=== PATIENT | male | born 1960 | race Native Hawaiian/Other Pacific Islander ===

== ENCOUNTER 2020-09-27 04:28 | Emergency (ER) | payer OTHER, MEDICAID ==
[2020-09-27] MEDS ORDERED: Zemuron 100 MG/10 ML IJ ONE (04:29)
[2020-09-27] MEDS ORDERED: Amidate 20 MG/10 ML IV ONE (04:29)
[2020-09-27] MEDS ORDERED: SUBLIMAZE 100 MCG/2 ML IV ONE ×2 (04:32→06:27)
[2020-09-27] MEDS ORDERED: Sodium Chloride 0.9% 1000 ML 1,000 ML IV STA (04:32)
--- NOTE | 2020-09-27 04:44 | ERPHSYRPT ---
- History of Present Illness Source: EMS Exam Limitations: clinical condition Timing/Duration: today Severity: severe - History of Present Illness Time Seen by Provider: 09/27/20 04:31 Physician History: Per EMS, approximately 2 AM patient started becoming less responsive in the [facility]. Patient does have a's seizure and psych history. He is on several seizure medications and psych medications. Also history of insulin-dependent diabetes. No other history provided by [facility]. Only a medication list. When patient arrived to the emergency department he was actively vomiting and nonresponsive. He had intermittent tonic clonic jerking's. Overall did appear that he was in status epilepticus. He had received 5 mg of IV Versed just prior to arrival. At this point time given his clinical condition, inability to protect his airway we made the decision to intubate the patient. Patient was given etomidate and rocuronium. Intubation occurred without difficulty. No other obvious further history based on EMS angio report. However, no signs or symptoms of Covid on the [facility] floor. (NEIDA LÓPEZ) Allergies/Adverse Reactions: UNOBTAINABLE Allergy (Unverified 09/27/20 05:40) Home Medications: Aspirin 81 mg PO DAILY 09/27/20 [History] Atorvastatin Calcium [Lipitor 20MG Tablet] 20 mg PO HS 09/27/20 [History] Cyanocobalamin (Vitamin B-12) [Cyanocobalamin Injection] 1,000 mcg IJ UD 09/27/20 [History] Furosemide 40 mg [Lasix 40 MG] 40 mg PO DAILY 09/27/20 [History] Insulin Regular, Human [Novolin R] 8 unit IJ ACHS 09/27/20 [History] Lactulose 45 ml PO DAILY 09/27/20 [History] Levetiracetam [Keppra] 1,000 mg PO Q12H 09/27/20 [History] Metformin HCl 500 mg PO BID 09/27/20 [History] Metoprolol Tartrate 12.5 mg PO BID 09/27/20 [History] NPH, Human Insulin Isophane [Novolin N] 15 unit SQ QAM 09/27/20 [History] NPH, Human Insulin Isophane [Novolin N] 30 unit SQ QPM 09/27/20 [History] Potassium Chloride [Klor-Con 10] 10 meq PO DAILY 09/27/20 [History] Tamsulosin HCl 0.4 mg [Flomax 0.4 MG] 0.4 mg PO DAILY 09/27/20 [History] Ziprasidone 20 mg [Geodon 20 MG Capsule] 20 mg PO BID 09/27/20 [History] Ziprasidone HCl [Geodon] 80 mg PO BID 09/27/20 [History] lisinopriL [Lisinopril] 20 mg PO DAILY 09/27/20 [History] - Review of Systems All Other Systems: Unable due to condition (See HPI for known review of systems. Patient is in status epilepticus. Unable to obtain further history.) - Nursing Vital Signs Nursing Vital Signs: Initial Vital Signs Temperature 98.2 F 09/27/20 04:35 Pulse Rate 119 H 09/27/20 04:35 Respiratory Rate 12 09/27/20 04:35 Blood Pressure 198/121 09/27/20 04:35 O2 Sat by Pulse Oximetry 94 L 09/27/20 04:35 Pain Scale Pain Intensity 0 - Physical Exam Comments: 09/27/20 04:42 Physical Exam Vitals signsand nursing notereviewed. Constitutional: Appearance: He is well-developed. Unresponsive, actively vomiting, and status epilepticus. HENT: Head: Normocephalicand 0.5 similar laceration over the right eyebrow. Eyes: Conjunctiva/sclera: Conjunctivae normal. Neck: Musculoskeletal: deformities Trachea: No tracheal deviation. Cardiovascular: Rate and Rhythm: tachycardia Pulmonary: Effort: Acute respiratory distress Abdominal: Palpations: Abdomen is soft. Actively vomiting Musculoskeletal: General: No deformity. Skin: General: Skin is warmand dry. Neurological: Mental Status: Status epilepticus . (NEIDA LÓPEZ) Procedures - Central Line Timeout: Performed Central Line Lumen: triple Lumen Size: 7 [place] Central Line Procedure: chlorahexadine prep, sterile drapes applied, sterile dressing applied, Aseptic Technique, Seldinger Technique Central Line Postion: femoral (R) Anesthesia: patient unconscious Ultrasound Guided Placement: Yes Complications: none Central Line Post Position: sutured, good blood return - Intubation Intubation Indications: airway protection Intubation Method: glidescope Tube Size (cm): 7.5 Medications: Etomidate, Rocuronium C-Spine: immobilized Endotracheal Tube Confirmation: bilateral breath sounds, positive end tidal CO2 Intubation Complications: no complications Performed By: ED Physician Post Intubation Xray: Yes - Central Line Progress: Good blood flow and flushes well. (NEIDA LÓPEZ) - Intubation Progress/X-ray Impression: 09/27/20 04:[address] (NEIDA LÓPEZ) - Course Nursing assessment & vital signs reviewed: Yes EKG Interpreted by Me: Sinus Tach Ordered Tests: Active Orders 24 hr Category Date Time Status Catheter-Broadway Lewis STAT Care 09/27/20 04:32 Active EKG-ER Only STAT Care 09/27/20 04:32 Active IV Insertion STAT Care 09/27/20 04:32 Active CHEST 1 VIEW (PORTABLE) Stat Exams 09/27/20 05:05 Taken HEAD WITHOUT CONTRAST [CT] Stat Exams 09/27/20 04:31 Taken ABG [ARTERIAL BLOOD GASES] Stat Lab 09/27/20 04:57 Completed AMYLASE Stat Lab 09/27/20 05:50 Completed CBC W DIFF Stat Lab 09/27/20 05:50 Completed CMP Stat Lab 09/27/20 05:50 Completed CULTURE,URINE Stat Lab 09/27/20 04:33 Ordered LIPASE Stat Lab 09/27/20 05:50 Completed Lactic Acid Stat Lab 09/27/20 04:57 Completed Lactic Acid Stat Lab 09/27/20 07:07 Received NT PRO BNP Stat Lab 09/27/20 05:50 Completed PROTIME WITH INR Stat Lab 09/27/20 05:50 Completed TROPONIN Q3H Lab 09/27/20 05:50 Completed TROPONIN Q3H Lab 09/27/20 07:45 Ordered TROPONIN Q3H Lab 09/27/20 10:45 Ordered TROPONIN Q3H Lab 09/27/20 13:45 Ordered TROPONIN Q3H Lab 09/27/20 16:45 Ordered UA W/RFX UR CULTURE Stat Lab 09/27/20 04:32 Completed Urine Triage Profile Stat Lab 09/27/20 04:32 Completed Intubation [Ventilator Management] STAT RT 09/27/20 04:19 Active Standby STAT RT 09/27/20 06:00 Active Medication Summary Generic Name Dose Route Start Last Admin Trade Name Freq PRN Reason Stop Dose Admin Propofol 100 mls @ 0 mls/hr 09/27/20 05:46 Propofol 1000 Mg/100 Ml Bottle IV 10/27/20 10:00 .Q0M PRN AGITATION Protocol 5 MCG/KG/MIN Diltiazem HCl 100 mls @ 5 mls/hr 09/27/20 05:49 09/27/20 05:53 Cardizem Drip 100 Mg/100 Ml D5w IV 10/27/20 05:48 5 mg/hr .Q20H PRN 5 mls/hr HEART RATE/ A-FIB Administration Protocol 5 MG/HR Propofol 100 mls @ 2.674 mls/hr 09/27/20 06:40 09/27/20 05:18 Propofol 1000 Mg/100 Ml Bottle IV 10/27/20 06:39 5 mcg/kg/min .Q24H PRN 2.674 mls/hr SEIZURES Administration Protocol 5 MCG/KG/MIN Levetiracetam 1,000 mg/ 110 mls @ 220 mls/hr 09/27/20 07:36 Dextrose IV 09/27/20 08:05 STAT ONE Discontinued Medications Generic Name Dose Route Start Last Admin Trade Name Freq PRN Reason Stop Dose Admin Fentanyl Citrate 100 mcg 09/27/20 04:32 09/27/20 04:58 Sublimaze 100 Mcg/2 Ml IV 09/27/20 04:33 100 mcg STAT ONE Administration Fentanyl Citrate Confirm 09/27/20 04:55 Sublimaze 100 Mcg/2 Ml Administered 09/27/20 04:56 Dose 100 mcg .ROUTE .STK-MED ONE Fentanyl Citrate Confirm 09/27/20 06:24 Sublimaze 100 Mcg/2 Ml Administered 09/27/20 06:25 Dose 100 mcg .ROUTE .STK-MED ONE Fentanyl Citrate 100 mcg 09/27/20 06:27 09/27/20 06:28 Sublimaze 100 Mcg/2 Ml IV 09/27/20 06:28 100 mcg STAT ONE Administration Sodium Chloride 1,000 mls @ 999 mls/hr 09/27/20 04:32 09/27/20 06:57 Sodium Chloride 0.9% 1000 Ml IV 09/27/20 05:32 Infused .Q1H1M STA Infusion Propofol 100 mls @ 0 mls/hr 09/27/20 05:04 Propofol 1000 Mg/100 Ml Bottle IV 10/27/20 05:03 .Q0M PRN AGITATION Protocol 5 MCG/KG/MIN Sodium Chloride Confirm 09/27/20 05:05 Sodium Chloride 0.9% 1000 Ml Administered 09/27/20 05:06 Dose 1,000 mls @ ud .ROUTE .STK-MED ONE Insulin Human Regular 4 unit 09/27/20 07:35 09/27/20 07:46 Humulin R IV 09/27/20 07:36 4 unit STAT ONE Administration Insulin Human Regular Confirm 09/27/20 07:42 Humulin R Administered 09/27/20 07:43 Dose 4 unit .ROUTE .STK-MED ONE Labetalol HCl 20 mg 09/27/20 05:42 09/27/20 06:00 Trandate 100 Mg/20 Ml Mdv For Drip IV 09/27/20 05:43 20 mg ONCE STA Administration Labetalol HCl Confirm 09/27/20 05:45 Trandate 100 Mg/20 Ml Mdv For Drip Administered 09/27/20 05:46 Dose 100 mg IV .[facility] ONE Lab/Rad Data: Laboratory Result Diagrams 09/27/20 05:50 09/27/20 05:50 Laboratory Results 09/27/20 09/27/20 09/27/20 Range/Units 05:50 05:50 05:50 WBC (4.0-10.5) K/mm3 RBC (4.1-5.6) M/mm3 Hgb (12.5-18.0) gm/dl Hct (42-50) % MCV (78-100) fl MCH (26-32) pg MCHC (32-36) g/dl RDW (11.5-14.0) % Plt Count (150-450) K/mm3 MPV (7.5-11.0) fl Gran % (36.0-66.0) % Eos # (Auto) (0-0.5) Absolute Lymphs (auto) (1.0-4.6) Absolute Monos (auto) (0.0-1.3) Lymphocytes % (24.0-44.0) % Monocytes % (0.0-12.0) % Eosinophils % (0.00-5.0) % Basophils % (0.0-0.4) % Absolute Granulocytes (1.4-6.9) Basophils # (0-0.4) PT 12.3 (8.83-12.87) SECONDS INR 1.09 (0.8-3.0) Puncture Site pCO2 (35-45) mmHg pO2 (75-100) mmHg Base Excess (-2.0-2.0) O2 Saturation (94-100) g/dF ABG pH (7.35-7.45) ABG HCO3 (22-28) ABG O2 Sat (Measured) (95-100) % Michael Test A-a Gradient a/A Ratio Hemoglobin Carboxyhemoglobin (0.0-6.9) % THgb Methemoglobin (1.4-1.5) % Potassium 3.8 (3.5-5.1) Temperature C POC O2 Flow Rate % Vent Mode Vent Rate /MIN Tidal Volume cc PEEP cmH2O Sodium 140 (137-145) mmol/L Chloride 99 (98-107) mmol/L Carbon Dioxide 28 (22-30) mmol/L Anion Gap 16.4 H (5-15) MEQ/L BUN 18 (9-20) mg/dL Creatinine 0.66 (0.66-1.25) mg/dL Estimated GFR > 60.0 ML/MIN Glucose 306 H (74-106) mg/dL Lactic Acid (0.4-2.0) Calcium 9.4 (8.4-10.2) mg/dL Total Bilirubin 0.90 (0.2-1.3) mg/dL AST 31 (17-59) U/L ALT 22 (0-50) U/L Alkaline Phosphatase 70 (38-126) U/L Troponin I < 0.012 (0.000-0.034) ng/mL NT-Pro-B Natriuret Pep 67.7 (0-900) pg/mL Serum Total Protein 9.4 H (6.3-8.2) g/dL Albumin 4.8 (3.5-5.0) g/dL Amylase 281 H (30-110) U/L Lipase 55 (23-300) U/L Urine Color (YELLOW) Urine Appearance (CLEAR) Urine pH (5-6) Ur Specific [place] (1.005-1.025) Urine Protein (Negative) Urine Ketones (NEGATIVE) Urine Blood (0-5) Aron/ul Urine Nitrite (NEGATIVE) Urine Bilirubin (NEGATIVE) Urine Urobilinogen (0-1) mg/dL Ur Leukocyte Esterase (NEGATIVE) Urine WBC (Auto) (0-5) /HPF Urine RBC (Auto) (0-2) /HPF U Hyaline Cast (Auto) (0-2) /LPF U Epithel Cells (Auto) (FEW) /HPF Urine Bacteria (Auto) (NEGATIVE) /HPF Urine Mucus (Auto) (NEGATIVE) /HPF Urine Culture Reflexed (NO) Urine Glucose (NEGATIVE) mg/dL Urine Opiates Level (NEGATIVE) Ur Methadone (NEGATIVE) Urine Barbiturates (NEGATIVE) Ur Phencyclidine (PCP) (NEGATIVE) Urine Amphetamine (NEGATIVE) U Benzodiazepine Level (NEGATIVE) Urine Cocaine (NEGATIVE) Urine Marijuana (THC) (NEGATIVE) 09/27/20 09/27/20 09/27/20 Range/Units 05:50 04:57 04:57 WBC 11.9 H (4.0-10.5) K/mm3 RBC 4.81 (4.1-5.6) M/mm3 Hgb 13.9 (12.5-18.0) gm/dl Hct 40.9 L (42-50) % MCV 85.0 (78-100) fl MCH 28.9 (26-32) pg MCHC 34.0 (32-36) g/dl RDW 12.4 (11.5-14.0) % Plt Count 228 (150-450) K/mm3 MPV 9.0 (7.5-11.0) fl Gran % 79.6 H (36.0-66.0) % Eos # (Auto) 0 (0-0.5) Absolute Lymphs (auto) 1.51 (1.0-4.6) Absolute Monos (auto) 0.88 (0.0-1.3) Lymphocytes % 12.7 L (24.0-44.0) % Monocytes % 7.4 (0.0-12.0) % Eosinophils % 0.0 (0.00-5.0) % Basophils % 0.3 (0.0-0.4) % Absolute Granulocytes 9.43 H (1.4-6.9) Basophils # 0.03 (0-0.4) PT (8.83-12.87) SECONDS INR (0.8-3.0) Puncture Site LEFT FEMORAL pCO2 40 (35-45) mmHg pO2 451 H* (75-100) mmHg Base Excess 4.2 H (-2.0-2.0) O2 Saturation 97.8 (94-100) g/dF ABG pH 7.46 H (7.35-7.45) ABG HCO3 28.4 H (22-28) ABG O2 Sat (Measured) 99.8 (95-100) % Michael Test NOT APPLICABLE A-a Gradient 212 a/A Ratio 0.68 Hemoglobin 14.6 Carboxyhemoglobin 0.9 (0.0-6.9) % THgb Methemoglobin 1.1 L (1.4-1.5) % Potassium 4.2 (3.5-5.1) Temperature 37.0 C POC O2 Flow Rate 100 % Vent Mode A/C Vent Rate 12 /MIN Tidal Volume 600 cc PEEP 5.0 cmH2O Sodium (137-145) mmol/L Chloride (98-107) mmol/L Carbon Dioxide (22-30) mmol/L Anion Gap (5-15) MEQ/L BUN (9-20) mg/dL Creatinine (0.66-1.25) mg/dL Estimated GFR ML/MIN Glucose (74-106) mg/dL Lactic Acid 2.9 H (0.4-2.0) Calcium (8.4-10.2) mg/dL Total Bilirubin (0.2-1.3) mg/dL AST (17-59) U/L ALT (0-50) U/L Alkaline Phosphatase (38-126) U/L Troponin I (0.000-0.034) ng/mL NT-Pro-B Natriuret Pep (0-900) pg/mL Serum Total Protein (6.3-8.2) g/dL Albumin (3.5-5.0) g/dL Amylase (30-110) U/L Lipase (23-300) U/L Urine Color (YELLOW) Urine Appearance (CLEAR) Urine pH (5-6) Ur Specific [place] (1.005-1.025) Urine Protein (Negative) Urine Ketones (NEGATIVE) Urine Blood (0-5) Aron/ul Urine Nitrite (NEGATIVE) Urine Bilirubin (NEGATIVE) Urine Urobilinogen (0-1) mg/dL Ur Leukocyte Esterase (NEGATIVE) Urine WBC (Auto) (0-5) /HPF Urine RBC (Auto) (0-2) /HPF U Hyaline Cast (Auto) (0-2) /LPF U Epithel Cells (Auto) (FEW) /HPF Urine Bacteria (Auto) (NEGATIVE) /HPF Urine Mucus (Auto) (NEGATIVE) /HPF Urine Culture Reflexed (NO) Urine Glucose (NEGATIVE) mg/dL Urine Opiates Level (NEGATIVE) Ur Methadone (NEGATIVE) Urine Barbiturates (NEGATIVE) Ur Phencyclidine (PCP) (NEGATIVE) Urine Amphetamine (NEGATIVE) U Benzodiazepine Level (NEGATIVE) Urine Cocaine (NEGATIVE) Urine Marijuana (THC) (NEGATIVE) 09/27/20 09/27/20 Range/Units 04:32 04:32 WBC (4.0-10.5) K/mm3 RBC (4.1-5.6) M/mm3 Hgb (12.5-18.0) gm/dl Hct (42-50) % MCV (78-100) fl MCH (26-32) pg MCHC (32-36) g/dl RDW (11.5-14.0) % Plt Count (150-450) K/mm3 MPV (7.5-11.0) fl Gran % (36.0-66.0) % Eos # (Auto) (0-0.5) Absolute Lymphs (auto) (1.0-4.6) Absolute Monos (auto) (0.0-1.3) Lymphocytes % (24.0-44.0) % Monocytes % (0.0-12.0) % Eosinophils % (0.00-5.0) % Basophils % (0.0-0.4) % Absolute Granulocytes (1.4-6.9) Basophils # (0-0.4) PT (8.83-12.87) SECONDS INR (0.8-3.0) Puncture Site pCO2 (35-45) mmHg pO2 (75-100) mmHg Base Excess (-2.0-2.0) O2 Saturation (94-100) g/dF ABG pH (7.35-7.45) ABG HCO3 (22-28) ABG O2 Sat (Measured) (95-100) % Michael Test A-a Gradient a/A Ratio Hemoglobin Carboxyhemoglobin (0.0-6.9) % THgb Methemoglobin (1.4-1.5) % Potassium (3.5-5.1) Temperature C POC O2 Flow Rate % Vent Mode Vent Rate /MIN Tidal Volume cc PEEP cmH2O Sodium (137-145) mmol/L Chloride (98-107) mmol/L Carbon Dioxide (22-30) mmol/L Anion Gap (5-15) MEQ/L BUN (9-20) mg/dL Creatinine (0.66-1.25) mg/dL Estimated GFR ML/MIN Glucose (74-106) mg/dL Lactic Acid (0.4-2.0) Calcium (8.4-10.2) mg/dL Total Bilirubin (0.2-1.3) mg/dL AST (17-59) U/L ALT (0-50) U/L Alkaline Phosphatase (38-126) U/L Troponin I (0.000-0.034) ng/mL NT-Pro-B Natriuret Pep (0-900) pg/mL Serum Total Protein (6.3-8.2) g/dL Albumin (3.5-5.0) g/dL Amylase (30-110) U/L Lipase (23-300) U/L Urine Color STRAW (YELLOW) Urine Appearance CLEAR (CLEAR) Urine pH 7.0 (5-6) Ur Specific [place] 1.011 (1.005-1.025) Urine Protein 100 (Negative) Urine Ketones NEGATIVE (NEGATIVE) Urine Blood MODERATE (0-5) Aron/ul Urine Nitrite NEGATIVE (NEGATIVE) Urine Bilirubin NEGATIVE (NEGATIVE) Urine Urobilinogen 2 (0-1) mg/dL Ur Leukocyte Esterase NEGATIVE (NEGATIVE) Urine WBC (Auto) NONE (0-5) /HPF Urine RBC (Auto) 6-10 (0-2) /HPF U Hyaline Cast (Auto) 0-2 (0-2) /LPF U Epithel Cells (Auto) RARE (FEW) /HPF Urine Bacteria (Auto) RARE (NEGATIVE) /HPF Urine Mucus (Auto) SLIGHT (NEGATIVE) /HPF Urine Culture Reflexed ORDERED SEPARATELY (NO) Urine Glucose >=500 (NEGATIVE) mg/dL Urine Opiates Level NEGATIVE (NEGATIVE) Ur Methadone NEGATIVE (NEGATIVE) Urine Barbiturates NEGATIVE (NEGATIVE) Ur Phencyclidine (PCP) NEGATIVE (NEGATIVE) Urine Amphetamine NEGATIVE (NEGATIVE) U Benzodiazepine Level NEGATIVE (NEGATIVE) Urine Cocaine NEGATIVE (NEGATIVE) Urine Marijuana (THC) NEGATIVE (NEGATIVE) - Progress Progress: improved - Progress Progress Note: 09/27/20 04:44 We will obtain basic labs, head CT, fluids, wide base work-up for altered mental status, status epilepticus. We will use propofol for sedation as it has antiepileptic properties, will also give fentanyl. Patient most likely need to be transferred. 09/27/20 05:46 CT scan shows chronic versus subacute stroke on head CT. Patient continues to be very hypertensive. Will give 20 mg of labetalol IV. Patient also given sedation medication which we also would hope lowers blood pressure. We will continue to monitor it closely. A central line was placed in the right femoral vein given his difficult IV access. Also critical patient needing several day for medications going at once. 09/27/20 05:57 ED critical care statement As staff physician, I have provided critical care. Time: 55 mins Criteria for critical illness: status epilepticus requiring intubation, hypertensive emergency. Treatment and management provided include: Coordination of management with ETC care team, consultants, and inpatient care team. [id number] assessment of condition and response to therapy. Review and interpretation of emergent diagnostic testing. Medical chart review and completion. Direction and immediate supervision of the following therapy: Critical care was time spent personally by me on the following activities: blood draw for specimens, development of treatment plan with patient or surrogate, discussions with consultants, discussions with primary provider, interpretation of cardiac output measurements, evaluation of patient's response to treatment, examination of patient, obtaining history from patient or surrogate, ordering and performing treatments and interventions, ordering and review of laboratory studies, ordering and review of radiographic studies, pulse oximetry, re-evaluation of patient's condition and review of old charts. This time was independent of all procedures performed. Neida López 09/27/20 06:09 We attempted transfer to [facility], they do not have neurology operations technician. I spoke with Dr. Charlie Calabrese the hospitalist for [facility]. He accepted the patient. (NEIDA LÓPEZ) d/w Dr.Fleck Sandersist neurology and patient is accepted by neurology and ICU team will be calling back. Patient is given a loading dose of Keppra and 4 units of IV insulin. Currently blood pressure and 158/80 and heart rate in 70s. 09/27/20 07:41 09/27/20 07:49 Dr. Renae from critical care team called back, discussed patient history, work- up/imaging and current treatment, and agreed with transfer to [facility]. (SONNY PENA) - Departure Departure Disposition: Home Critical Care Time: Yes Critical Care Time(excluding separately billable procedures): Critical 30-74 mins - Departure Clinical Impression: Status epilepticus, Hypertensive emergency, Aspiration into airway Condition: Serious Referrals: Provider,Unknown [Primary Care Provider] -
[2020-09-27] MEDS ORDERED: SUBLIMAZE 100 MCG/2 ML ONE ×2 (04:55→06:24)
[2020-09-27] MEDS ORDERED: Propofol 1000 mg/100 ml Bottle 100 ML IV PRN ×3 (05:04→06:40)
[2020-09-27 05:05] LABS: A-aADO2 212; ABG HEMOGLOBIN 14.6; ABG POTASSIUM 4.2 (3.5-5.1); ABG SITE LEFT FEMORAL; ARTERIAL BLD GAS O2 SATURATION 99.8 % (95-100); ARTERIAL BLD GAS TIDAL VOLUME 600 cc; ARTERIAL BLOOD GAS BASE EXCESS 4.2 (-2.0-2.0); ARTERIAL BLOOD GAS FIO2 100 %; ARTERIAL BLOOD GAS PCO2 40 mmHg (35-45); ARTERIAL BLOOD GAS PO2 451 mmHg (75-100); ARTERIAL BLOOD GAS VENT MODE A/C; ARTERIAL BLOOD GAS VENT RATE 12 /MIN; ARTERIAL BLOOD GAS pH 7.46 (7.35-7.45); CARBOXYHEMOGLOBIN 0.9 % THgb (0.0-6.9); HCO3- 28.4 (22-28); HGB O2 SAT 97.8 g/dF (94-100); Methhemoglobin 1.1 % (1.4-1.5); paO2 pAO1 0.68
[2020-09-27] MEDS ORDERED: Sodium Chloride 0.9% 1000 ML 1,000 ML ONE (05:05)
[2020-09-27 05:11] LABS: Appearance CLEAR (CLEAR); Bacteria RARE /HPF (NEGATIVE); Bilirubin NEGATIVE (NEGATIVE); Blood MODERATE Ery/ul (0-5); Epithelial Cells RARE /HPF (FEW); Glucose >=500 mg/dL (NEGATIVE); Hyaline Casts 0-2 /LPF (0-2); Ketones NEGATIVE (NEGATIVE); Leukocyte Esterase NEGATIVE (NEGATIVE); Mucus SLIGHT /HPF (NEGATIVE); Nitrite NEGATIVE (NEGATIVE); Protein,Urine Dip 100 (Negative); Specific Gravity 1.011 (1.005-1.025); Urobilinogen 2 mg/dL (0-1)
[2020-09-27 05:27] LABS: Amphetamine,Urine NEGATIVE (NEGATIVE); Barbiturate,Urine NEGATIVE (NEGATIVE); Benzodiazepine,Urine NEGATIVE (NEGATIVE); Cocaine,Urine NEGATIVE (NEGATIVE); Methadone,Urine NEGATIVE (NEGATIVE); Opiate,Urine NEGATIVE (NEGATIVE); PCP,Urine NEGATIVE (NEGATIVE); THC,Urine NEGATIVE (NEGATIVE)
[2020-09-27] MEDS ORDERED: TRANDATE 100 MG/20 ML MDV FOR DRIP IV STA (05:42)
[2020-09-27] MEDS ORDERED: TRANDATE 100 MG/20 ML MDV FOR DRIP IV ONE (05:45)
[2020-09-27] MEDS ORDERED: CARDIZEM DRIP 100 MG/100 ML D5W 100 ML IV PRN (05:49)
[2020-09-27] MEDS ORDERED: CARDIZEM DRIP 100 MG/100 ML D5W 100 ML IV ONE (05:50)
[2020-09-27 05:57] LABS: Absolute Neutrophil Ct (ANC) 9.43 (1.4-6.9); BASOPHIL % 0.3 % (0.0-0.4); Basophil (Absolute #) 0.03 (0-0.4); Eosinophil (Absolute #) 0 (0-0.5); Hematocrit 40.9 % (42-50); Hemoglobin 13.9 gm/dl (12.5-18.0); Lymphocyte (Absolute #) 1.51 (1.0-4.6); Lymphocytes % 12.7 % (24.0-44.0); Mean Corpuscular Hemoglobin 28.9 pg (26-32); Monocyte (Absolute #) 0.88 (0.0-1.3); Monocytes % 7.4 % (0.0-12.0); Neutrophil % 79.6 % (36.0-66.0); Platelet Count 228 K/mm3 (150-450); Red Blood Count 4.81 M/mm3 (4.1-5.6); Red Cell Distribution Width 12.4 % (11.5-14.0); White Blood Count 11.9 K/mm3 (4.0-10.5)
[2020-09-27 06:08] LABS: INR 1.09 (0.8-3.0); PROTIME 12.3 SECONDS (8.83-12.87)
[2020-09-27 06:19] LABS: ALBUMIN 4.8 g/dL (3.5-5.0); ALKALINE PHOSPHATASE 70 U/L (38-126); AMYLASE 281 U/L (30-110); ANION GAP 16.4 MEQ/L (5-15); BLOOD UREA NITROGEN 18 mg/dL (9-20); CHLORIDE 99 mmol/L (98-107); Calcium 9.4 mg/dL (8.4-10.2); Carbon Dioxide 28 mmol/L (22-30); Creatinine 1 0.66 mg/dL (0.66-1.25); EST GLOMERULAR FILTRATION RATE > 60.0 ML/MIN; Glucose 306 mg/dL (74-106); LIPASE 55 U/L (23-300); NT PRO BNP 67.7 pg/mL (0-900); Potassium 3.8 mmol/L (3.5-5.1); SGOT/AST 31 U/L (17-59); SGPT/ALT 22 U/L (0-50); SODIUM 140 mmol/L (137-145); Total Protein 9.4 g/dL (6.3-8.2)
[2020-09-27 06:43] VITALS: O2SAT 100
[2020-09-27] MEDS ORDERED: HUMULIN R IV ONE (07:35)
[2020-09-27] MEDS ORDERED: Keppra 500 MG/5 ML*** 1,000 MG in D5w 100ML Mini Bag 100 ML 100 ML IV ONE (07:36)
[2020-09-27] MEDS ORDERED: HUMULIN R ONE (07:42)
[2020-09-27] MEDS ORDERED: Lasix 40 MG/4 ML ONE (08:05)
[2020-09-27] MEDS ORDERED: Lasix 40 MG/4 ML IV ONE (08:11)
[2020-09-27] MEDS ORDERED: VERSED 5 MG/5 ML ONE (08:20)
[2020-09-27] MEDS ORDERED: Versed 2 MG/2 ML Injection IV ONE ×2 (08:30→10:01)
--- NOTE | 2020-09-27 09:03 | XRAY ---
Indication: Tube placement. Possible aspiration. Portable apical lordotic chest demonstrates endotracheal tube tip in proximal right mainstem bronchus. Remaining heart and lungs unremarkable. Bony thorax intact. Comment: ER clinician is aware of tube placement and notes readjustment.
--- NOTE | 2020-09-27 09:05 | XRAY ---
Indication: Found unresponsive. Emesis. Multiple contiguous axial images obtained through the chest without contrast. Comparison: None Age-appropriate global atrophy. Right temporal lobe demonstrates 2.5 cm focus of subacute/chronic infarct. No acute intracranial hemorrhage, hydrocephalus, or mass effect. Fourth ventricle is midline. Bony calvarium intact. Mild mucosal thickening of both ethmoid sinuses. Remaining visualized paranasal sinuses and mastoid air cells are clear. Impression: 1. Atrophy and subacute/chronic right temporal lobe infarct. 2. No acute intracranial abnormalities. 3. Incidental paranasal sinus disease. Comment: Preliminary interpretation was made by [facility]. No critical discrepancy.
[2020-09-27 10:01] VITALS: BP 135/81; PULSE 84
== END 2020-09-27 11:18 | disposition short-term general hospital (02) ==
LOC: ED 04:28
DX: G40.901 Epilepsy, unspecified, not intractable, with status epilepticus (principal); I10 Essential (primary) hypertension; R11.10 Vomiting, unspecified; R00.0 Tachycardia, unspecified; E11.9 Type 2 diabetes mellitus without complications; Z79.899 Other long term (current) drug therapy
CPT/HCPCS: 31500; 36000; 36415; 36600; 51702; 70450; 71045; 80053; 80307; 81001; 82150; 82375; 82803; 83605; 83690; 83880; 84484; 85025; 85610; 87086; 93005; 94002; 94799; 96360; 96365; 96367; 96374; 96375; 96376; 99285; 99291; J1815; J1940; J1953; J2250; J2704; J3010